=== PATIENT | male | born 1940 | race Caucasian/White ===

== ENCOUNTER 2016-03-31 13:23 | Outpatient (CLI) | payer MEDICARE ==
[2016-03-31 14:18] LABS: Prothrombin Time 24.1 SEC (12.0-14.7)
== END 2016-03-31 13:24 | disposition home or self-care (01) ==
LOC: NAV LABSP 13:23
PROVIDERS: ATTEND Internal Medicine
DX: Z51.81 Encounter for therapeutic drug level monitoring (principal); I48.0 Paroxysmal atrial fibrillation; Z79.01 Long term (current) use of anticoagulants
CPT/HCPCS: 36415; 85610

== ENCOUNTER 2016-04-28 11:19 | Outpatient (CLI) | payer MEDICARE ==
[2016-04-28 13:32] LABS: Prothrombin Time 32.4 SEC (12.0-14.7)
== END 2016-04-28 11:20 | disposition home or self-care (01) ==
LOC: NAVSJIPCSP 11:19
PROVIDERS: ATTEND Internal Medicine
DX: I48.0 Paroxysmal atrial fibrillation (principal); Z79.899 Other long term (current) drug therapy
CPT/HCPCS: 36415; 85610

== ENCOUNTER 2016-05-12 09:07 | Outpatient (CLI) | payer MEDICARE ==
[2016-05-12 13:17] LABS: Prothrombin Time 22.8 SEC (12.0-14.7)
[2016-05-12 13:22] LABS: Hemoglobin A1c 5.5 % (4.0-6.0)
== END 2016-05-12 09:08 ==
LOC: NAVSJIPCSP 09:07
PROVIDERS: ATTEND Internal Medicine
DX: E78.5 Hyperlipidemia, unspecified (principal); I48.0 Paroxysmal atrial fibrillation; E11.29 Type 2 diabetes mellitus with other diabetic kidney complication; Z79.01 Long term (current) use of anticoagulants
CPT/HCPCS: 36415; 80061; 83036; 85610

== ENCOUNTER 2016-06-21 12:07 | Outpatient (CLI) | payer MEDICARE ==
[2016-06-21 13:50] LABS: INR-International Normal Ratio 2.3; Prothrombin Time 25.9 SEC (12.0-14.7)
== END 2016-06-21 12:08 | disposition home or self-care (01) ==
LOC: NAVSJIPCSP 12:07
PROVIDERS: ATTEND Internal Medicine
DX: I48.0 Paroxysmal atrial fibrillation (principal); Z79.01 Long term (current) use of anticoagulants
CPT/HCPCS: 36415; 85610

== ENCOUNTER 2016-07-28 13:38 | Outpatient (CLI) | payer MEDICARE ==
[2016-07-28 15:31] LABS: INR-International Normal Ratio 2.6; Prothrombin Time 28.9 SEC (12.0-14.7)
== END 2016-07-28 13:39 | disposition home or self-care (01) ==
LOC: NAVSJIPCSP 13:38
PROVIDERS: ATTEND Internal Medicine
DX: I48.0 Paroxysmal atrial fibrillation (principal); Z79.01 Long term (current) use of anticoagulants
CPT/HCPCS: 36415; 85610

== ENCOUNTER 2016-09-08 11:11 | Outpatient (CLI) | payer MEDICARE ==
[2016-09-08 12:52] LABS: INR-International Normal Ratio 2.3; Prothrombin Time 25.7 SEC (12.0-14.7)
== END 2016-09-08 11:12 | disposition home or self-care (01) ==
LOC: NAVSJIPCSP 11:11
PROVIDERS: ATTEND Internal Medicine
DX: Z51.81 Encounter for therapeutic drug level monitoring (principal); I48.0 Paroxysmal atrial fibrillation; Z79.01 Long term (current) use of anticoagulants
CPT/HCPCS: 36415; 85610

== ENCOUNTER 2016-11-10 09:51 | Outpatient (CLI) | payer MEDICARE ==
[2016-11-10 18:41] LABS: #Basophils 0.1 thou/uL (0.0-0.2); #Lymphocytes 2.5 thou/uL (1.20-3.40); %Monocytes 8.4 % (0.0-10.0); %Neutrophils 47.5 % (42.0-75.0); Hemoglobin 15.1 g/dL (14.0-18.0); Mean Corpuscular HGB CONC 33.9 g/dL (32.0-36.0); Mean Corpuscular Hemoglobin 34.3 pg (27.0-31.0); Platelet Count 195 thou/uL (130-400); RBC Distribution Width 12.1 % (11.5-14.5); Red Blood Cell (RBC) Count 4.42 mill/uL (4.70-6.10); White Blood Cell (WBC) Count 6.4 thou/uL (4.8-10.8)
[2016-11-10 19:09] LABS: Bilirubin Negative (Negative); Blood, Urine Trace (Negative); Clarity Clear (Clear); Glucose, Urine (Dipstick) Negative (Negative); Leukocyte Negative (Negative); Nitrite Negative (Negative); Protein, Urine (Dipstick) Negative (Neg-Trace); Specific Gravity, Urine 1.015 (1.005-1.030); Urobilinogen 0.2 mg/dL (0.2-1.0)
[2016-11-10 19:13] LABS: RBC/HPF 0-3 HPF (0-3); WBC/HPF 0-3 HPF (0-3)
[2016-11-10 19:26] LABS: ALT (SGPT) 18 U/L (8-55); AST (SGOT) 21 U/L (5-34); Albumin 3.7 g/dL (3.4-4.8); Alkaline Phosphatase 36 U/L (40-150); Anion Gap 13 mmol/L (10-20); BUN (Urea Nitrogen) 13 mg/dL (8.4-25.7); Bilirubin, Total 0.7 mg/dL (0.2-1.2); Calc. Creatinine Clearance 0 mL/min (70-130); Calcium 8.7 mg/dL (7.8-10.44); Carbon Dioxide 22 mmol/L (23-31); Cardiac Risk 3.7 (Less than 4.5); Chloride 106 mmol/L (98-107); Cholesterol 151 mg/dl (< 200 Desired); Estimated GFR-MDRD 79; Globulin 3.6 g/dL (2.4-3.5); Glucose 102 mg/dL (83-110); HDL Cholesterol 41 mg/dL (>60 Neg Risk); LDL Cholesterol, Calculated 95 mg/dL; Potassium 4.4 mmol/L (3.5-5.1); Protein, Total 7.3 g/dL (5.8-8.1); Sodium 137 mmol/L (136-145); Triglycerides 74 mg/dL (Less than 150)
[2016-11-10 19:51] LABS: #Eosinphils 0.3 thou/uL (0.0-0.7); #Monocytes 0.5 thou/uL (0.11-0.59); %Basophils 1.2 % (0.0-1.0); %Lymphocytes 38.6 % (21.0-51.0)
[2016-11-10 20:18] LABS: Hemoglobin A1c 5.4 % (4.0-6.0)
[2016-11-10 20:50] LABS: INR-International Normal Ratio 2.9; Prothrombin Time 31.8 SEC (12.0-14.7)
[2016-11-11 17:54] LABS: Creatinine, Urine 92.38 mg/dL (63-166); Microalbumin Urine 2.9 mg/dL (0.5-50.0); Microalbumin/Creat Ratio 31.4 mg/g (Less than 30)
== END 2016-11-10 09:52 | disposition home or self-care (01) ==
LOC: NAVSJIPCSP 09:51
PROVIDERS: ATTEND Internal Medicine
DX: Z51.81 Encounter for therapeutic drug level monitoring (principal); Z12.5 Encounter for screening for malignant neoplasm of prostate; E11.29 Type 2 diabetes mellitus with other diabetic kidney complication; E78.5 Hyperlipidemia, unspecified; Z79.899 Other long term (current) drug therapy; Z79.01 Long term (current) use of anticoagulants
CPT/HCPCS: 36415; 80053; 80061; 81003; 81015; 82043; 83036; 85025; 85610; G0103

== ENCOUNTER 2016-12-23 10:26 | Outpatient (CLI) | payer MEDICARE ==
[2016-12-23 11:57] LABS: INR-International Normal Ratio 3.2; Prothrombin Time 34.6 SEC (12.0-14.7)
== END 2016-12-23 10:27 | disposition home or self-care (01) ==
LOC: NAVSJIPCSP 10:26
PROVIDERS: ATTEND Internal Medicine
DX: Z51.81 Encounter for therapeutic drug level monitoring (principal); I48.0 Paroxysmal atrial fibrillation; Z79.01 Long term (current) use of anticoagulants
CPT/HCPCS: 36415; 85610

== ENCOUNTER 2017-03-24 10:11 | Outpatient (CLI) | payer MEDICARE, OTHER ==
--- NOTE | 2017-03-24 10:41 | RAD ---
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 COMPARISON: None. FINDINGS: There are numerous surgical clips underlying the left hemidiaphragm. There is mild cardiomegaly. Th ere is diffuse increased interstitial prominence with more reticulonodular areas seen within both upp er lobes. Findings can be related to an atypical infectious process. No confluent air space opacity is grossly evident. No definite pleural effusion is noted. No acute osseous abnormality is evident . IMPRESSION: 1. Diffusely increased interstitial prominence with some slight reticulonodularity within the upper lobes, right greater than left, can be seen with an atypical infectious processes including viral ill nesses. Continued followup is recommended. 2. No air space consolidation is grossly evident to suggest bacterial pneumonia. 3. Post surgical change involving the left upper quadrant of the abdomen. POS: [facility]
== END 2017-03-24 10:12 | disposition home or self-care (01) ==
LOC: NAV RAD 10:11
DX: R05 Cough (principal); Z51.81 Encounter for therapeutic drug level monitoring; Z98.890 Other specified postprocedural states; Z79.01 Long term (current) use of anticoagulants
CPT/HCPCS: 71020

== ENCOUNTER 2017-04-28 10:50 | Outpatient (CLI) | payer MEDICARE, OTHER ==
--- NOTE | 2017-04-28 13:21 | RAD ---
TWO VIEWS CHEST: HISTORY: Bronchitis. COMPARISON: 03/24/2017 FINDINGS: Two views of the chest show a normal sized cardiomediastinal silhouette. Increased interstitial lung markings are present. Haziness in both lower lobes may represent atelectasis or infiltrates. IMPRESSION: Bilateral lower lobe atelectasis versus infiltrates. POS: [facility]
== END 2017-04-28 10:51 | disposition home or self-care (01) ==
LOC: NAV RAD 10:50
PROVIDERS: ATTEND Internal Medicine
DX: J40 Bronchitis, not specified as acute or chronic (principal)
CPT/HCPCS: 71046

== ENCOUNTER 2018-05-05 15:06 | Outpatient (CLI) | payer MEDICARE, OTHER ==
--- NOTE | 2018-05-05 15:22 | RAD ---
2 VIEWS CHEST: Date: 05/05/18 PROVIDED CLINICAL HISTORY: Cough. FINDINGS: Comparison with 04/28/17. The cardiac silhouette remains enlarged. Prominence of the pulmonary interstitium is redemonstrated. Air space disease at each lung base is again suspected in a patchy manner. No pleural fluid or pneumo thorax apparent. IMPRESSION: Extensive prominence of the pulmonary interstitium, similar to prior examination, suggesting intersti tial lung disease. Patchy bibasilar air space disease may reflect pneumonia. Other etiologies are pos sible. Consider nonemergent CT. POS: [facility]
== END 2018-05-05 15:07 | disposition home or self-care (01) ==
LOC: NAV RAD 15:06
PROVIDERS: ATTEND Nurse Practitioner Adult Health
DX: R05 Cough (principal); J98.4 Other disorders of lung
CPT/HCPCS: 71046

== ENCOUNTER 2018-09-04 10:34 | Outpatient (CLI) | payer MEDICARE, OTHER ==
[2018-09-04 10:47] LABS: INR-International Normal Ratio 1.7; Prothrombin Time 19.8 SEC (12.0-14.7)
== END 2018-09-04 10:35 | disposition home or self-care (01) ==
LOC: NAV LAB 10:34
PROVIDERS: ATTEND Internal Medicine
DX: Z51.81 Encounter for therapeutic drug level monitoring (principal); Z79.01 Long term (current) use of anticoagulants
CPT/HCPCS: 36415; 85610

== ENCOUNTER 2020-12-03 16:31 | Emergency (ER) | payer MEDICARE, OTHER | END 2020-12-03 17:30 | disposition home or self-care (01) | LOC: NAV ERS 16:31 | DX: R42 Dizziness and giddiness (principal); R20.1 Hypoesthesia of skin; E78.5 Hyperlipidemia, unspecified; Z79.899 Other long term (current) drug therapy | CPT/HCPCS: 36416; 93005 ==

== ENCOUNTER 2022-03-26 10:44 | Outpatient (CLI) | payer MEDICARE, OTHER | END 2022-03-26 10:45 | disposition home or self-care (01) | LOC: NAV RAD 10:44 | PROVIDERS: ATTEND Family Medicine | DX: R05.2 Subacute cough (principal); R91.8 Other nonspecific abnormal finding of lung field | CPT/HCPCS: 71046 ==

== ENCOUNTER 2022-05-07 09:24 | Outpatient (CLI) | payer MEDICARE, OTHER | END 2022-05-07 09:25 | disposition home or self-care (01) | LOC: NAV RAD 09:24 | PROVIDERS: ATTEND Family Medicine | DX: R09.1 Pleurisy (principal) | CPT/HCPCS: 71046 ==

== ENCOUNTER 2023-04-07 09:59 | Outpatient (CLI) | payer MEDICARE, OTHER | END 2023-04-07 10:00 | disposition home or self-care (01) | LOC: NAV RAD 09:59 | PROVIDERS: ATTEND Family Medicine | DX: J18.9 Pneumonia, unspecified organism (principal); R91.8 Other nonspecific abnormal finding of lung field | CPT/HCPCS: 71046 ==